=== PATIENT | female | born 1950 | race Caucasian/White ===

== ENCOUNTER 2021-11-09 13:09 | Day surgery (SDC) | payer OTHER, SELFPAY ==
[2021-11-09] VITALS (11 sets, daily range): BP systolic 109–154; BP diastolic 55–89; PULSE 66–86; RESP 8–16; TEMP 36.1–36.9; O2SAT 95–100; BMI 29.0
[2021-11-09 15:15] LABS: COVID19 -Nasal RAPID Negative (Negative)
[2021-11-09] MEDS: LACTATED RINGERS 1,000 ML 42 ML IV ×2 (15:51→20:19)
--- NOTE | 2021-11-09 16:35 | PM.PREOP ---
Pre-operative Note COVID-19 COVID-19 status: Negative Interval Note History & Physical reviewed/Exam performed by Physician: Yes Changes to H&P: No
--- NOTE | 2021-11-09 16:37 | PM.OP.1 ---
Operative Date/Time/Diagnoses Date of procedure: 11/09/21 Time of procedure: 16:30 Pre-op diagnosis: right knee quad tear Post-op diagnosis: same Procedure & Clinicians Procedure: right knee quad repair Same procedure as scheduled: Yes Indications: This is a 71-year-old delvalle who fell and had a maximum contraction of his right quad and then noted severe right quad weakness. His exam showed evidence of a right quad rupture. He is brought to the operating room for right quad repair. Surgeon: Marily Toro Senior Director Marketing: Lakshmi Crisostomo Anesthesia Type: Peripheral nerve block Operative Notes Findings: Complete right quad tear, adequate repair, some fraying of the retinaculum and quad tendon Closure Type: primary Prosthetic devices, grafts, tissues, transplants, or devices: Multiple sutures, FiberWire Estimated Blood Loss (mL): 200 Tourniquet time (min): 45 Procedure in detail: The patient was brought to the operating room. He underwent induction of a general anesthesia after a block was placed for postoperative pain management. He was given IV antibiotics and a multimedia authoring specialist-out was performed. Was prepped and draped in standard sterile fashion. Midline incision was made after elevating the tourniquet to 250 mmHg. Dissection was carried out through skin and subcutaneous tissues. Subcutaneous flaps were gently elevated. There was a complete quad rupture with about a 3 cm gap between the quad tendon and the patella. There was significant hematoma in the wound. There was also significant joint fluid. Dissection was carried out down into the wound. There was tearing both of the medial and lateral retinaculum in addition to the entire quadriceps mechanism. 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 There was some arthritic change in the trochlear groove but not severe. Multiple FiberWires were carefully woven through the quad. Two Beath needles were then drilled through the patella and distally through the inferior pole. The FiberWire sutures were then carefully pulled through the quad and through the patella. I then used multiple nonabsorbable sutures to repair both the medial and lateral retinaculum. Anatomic repair of the retinaculum as well as the quad tendon was achieved. The FiberWires were pulled distally and tied over a bony bridge. Reasonable quality repair was achieved. The quad was noted to be substantially shortened prior to the repair. I did a gentle flexion stress and there was no gap with flexion to about 30? but his tissue was somewhat attenuated and I did not want to flex more than that. The wound was meticulously irrigated with normal saline. Exparel and Marcaine were carefully injected the wound is closed with interrupted Vicryl running catherine stitches and a running V lock. It was further closed with surgical glue and dressed sterilely with an Aquacel dressing. He was placed in his brace in full extension and the brace was locked. Tolerated the procedure well was transferred to recovery room in satisfactory condition complications none postoperative plan he can be weight-bearing on the right lower extremity but needs to keep his brace locked in his brace on multimedia authoring specialist keep his leg in full extension. Post-operative Condition: stable Disposition: same day surgery Plan for aftercare: Full weight-bearing on the right lower extremity. Full-time brace use with full extension.
[2021-11-09] MEDS: CEFAZOLIN 2 GM/20 ML SYRINGE IV (17:05)
[2021-11-09] MEDS: BUPIVACAINE 0.25% (PF) 30 ML, EPINEPHrine 0.15 MG INJ (17:37)
[2021-11-09] MEDS: BUPIVACAINE LIPOSOME 266 MG/20 ML VIAL INJ (18:00)
[2021-11-09] MEDS: fentaNYL 100 MCG/2 ML INJ IV ×2 (18:51→18:55)
[2021-11-09] MEDS: ONDANSETRON 4 MG/2 ML INJ IV (18:53)
[2021-11-09] MEDS: OXYCODONE/ACETAMINOPHEN 5/325 TABLET 1 TAB PO (19:07)
--- NOTE | 2021-11-09 20:15 | SUR.PHASEII ---
2006 PT discharged to home after being able tot stand at bedside and put all his weight on right leg, with locked brace on, on order to ensure Pt could go home and get up the 4 stairs into his house. Pt stated it felt strong and that he felt comfortable going home and using stairs with railing and one crutch. PT able tot get in to car keeping leg extended. Steady transfer. Pt with very, very tight fitting shoes. Unable to get shoe on even without shoe horn without patient having to push very hard (and he did try to push). Due to risk of hurting surgery, pt discharged in yellow non-stick socks on bilat feet.
--- NOTE | 2021-11-09 20:21 | SUR.PHASEI ---
Spoke with Jessica Williamson on telephone prior to DC and she stated she has prescriptions for pain medication as it did not print on DC paper.
== END 2021-11-09 20:03 | disposition home or self-care (01) ==
PROVIDERS: Referring Provider Orthopaedic Surgery; Visit Provider Orthopaedic Surgery
PROC: (CPT 27385; principal; 2021-11-09 15:30)
DX: S76.111A Strain of right quadriceps muscle, fascia and tendon, initial encounter (principal); M17.11 Unilateral primary osteoarthritis, right knee; I25.10 Atherosclerotic heart disease of native coronary artery without angina pectoris; I11.0 Hypertensive heart disease with heart failure; Z20.822 Contact with and (suspected) exposure to COVID-19
CPT/HCPCS: 27385; 87635; 93005; C9290; J0171; J0690; J2250; J2405; J3010